=== PATIENT | female | born 1950 | race African-American/Black ===

== ENCOUNTER 2017-01-09 17:11 | Emergency (ER) | payer MEDICARE ==
[2017-01-09] MEDS ORDERED: Mag-Al Plus 1200 MG/1200 MG/120 MG/30 ML UDCUP ONE (17:59)
[2017-01-09] MEDS ORDERED: Lidocaine Viscous Sol 2% 15 ml UD Cup ONE (17:59)
[2017-01-09 18:04] LABS: Hemoglobin 14.4 g/dL (12.0-16.0); Mean Corpuscular HGB CONC 30.3 g/dL (32.0-36.0); Mean Corpuscular Volume 79.3 fl (81.0-99.0); Mean Platelet Volume 8.9 fL (7.4-10.4); Platelet Count 257 thou/uL (130-400); RBC Distribution Width 14.6 % (11.5-14.5); Red Blood Cell (RBC) Count 5.99 mill/uL (4.20-5.40); White Blood Cell (WBC) Count 6.1 thou/uL (4.8-10.8)
[2017-01-09 18:13] LABS: ALT (SGPT) 11 U/L (0-55); AST (SGOT) 16 U/L (5-34); Albumin 4.6 g/dL (3.4-4.8); Alkaline Phosphatase 85 U/L (40-150); Amylase 123 U/L (25-125); Anion Gap 17 mmol/L (10-20); BUN (Urea Nitrogen) 8 mg/dL (9.8-20.1); Bilirubin, Total 0.5 mg/dL (0.2-1.2); CK (CPK) 103 U/L (29-168); CKMB 1.8 ng/mL (0-6.6); Calc. Creatinine Clearance 0 mL/min (70-130); Calcium 10.1 mg/dL (7.8-10.44); Carbon Dioxide 21 mmol/L (23-31); Chloride 106 mmol/L (98-107); Estimated GFR-MDRD 63; Globulin 3.8 g/dL (2.4-3.5); Glucose 112 mg/dL (80-115); Lipase 46 U/L (8-78); Potassium 3.7 mmol/L (3.5-5.1); Protein, Total 8.4 g/dL (5.8-8.1); Sodium 140 mmol/L (136-145)
[2017-01-09 18:14] LABS: Blood, Urine Negative (Negative); Clarity Clear (Clear); Glucose, Urine (Dipstick) Negative (Negative); Leukocyte Negative (Negative); Nitrite Negative (Negative); Protein, Urine (Dipstick) 100 mg/dL (Neg-Trace); Urobilinogen 0.2 mg/dL (0.2-1.0)
[2017-01-09 18:23] LABS: Bilirubin Negative (Negative); Icto Negative (Negative); Specific Gravity, Urine 1.028 (1.002-1.036)
[2017-01-09 18:24] LABS: Bacteria/HPF 1+ HPF (None Seen); RBC/HPF None Seen HPF (0-3); WBC/HPF None Seen HPF (0-3)
[2017-01-09 18:26] LABS: #Basophils 0.1 thou/uL (0.0-0.2); #Eosinphils 0.1 thou/uL (0.0-0.7); #Lymphocytes 2.7 thou/uL (1.20-3.40); #Monocytes 0.4 thou/uL (0.11-0.59); %Basophils 1.4 % (0.0-1.0); %Eosinophils 1.2 % (0.0-10.0); %Lymphocytes 43.6 % (21.0-51.0); %Monocytes 6.3 % (0.0-10.0); %Neutrophils 47.5 % (42.0-75.0); MDiff Complete? YES; Microcytosis SLIGHT = 6-15 cells (100X) (0-5/hpf); PLT Morphology Comment Appears Adequate
--- NOTE | 2017-01-09 20:48 | RAD ---
AP VIEW CHEST: 01/09/2017 HISTORY: Epigastric pain and back pain. FINDINGS: AP view of the chest is obtained. The lungs are well-aerated. No evidence of active intrathoracic disease seen. No evidence of effusions, pneumonia, or pneumothorax seen. IMPRESSION: Unremarkable AP view chest. POS: [facility]
== END 2017-01-09 19:18 | disposition home or self-care (01) ==
LOC: NAV ERS 17:11
DX: R10.13 Epigastric pain (principal); R10.33 Periumbilical pain; E11.9 Type 2 diabetes mellitus without complications; K21.9 Gastro-esophageal reflux disease without esophagitis; I10 Essential (primary) hypertension; Z87.891 Personal history of nicotine dependence; Z79.4 Long term (current) use of insulin; Z79.82 Long term (current) use of aspirin; Z79.899 Other long term (current) drug therapy
CPT/HCPCS: 36416; 71010; 80053; 81003; 81015; 82150; 82550; 82553; 83690; 84484; 85025; 93005

== ENCOUNTER 2017-01-14 04:28 | Emergency (ER) | payer MEDICARE ==
[2017-01-14] MEDS ORDERED: Ondansetron HCl/PF 4 MG/2 ML Vial ONE (04:53)
[2017-01-14] MEDS ORDERED: Pantoprazole 40 MG VIAL ONE (04:53)
[2017-01-14] MEDS ORDERED: Sodium Chloride 0.9% 1,000 ML ONE (04:53)
[2017-01-14 05:23] LABS: #Basophils 0.1 thou/uL (0.0-0.2); #Eosinphils 0.1 thou/uL (0.0-0.7); #Lymphocytes 2.8 thou/uL (1.20-3.40); #Monocytes 0.4 thou/uL (0.11-0.59); #Neutrophils 2.6 thou/uL (1.40-6.50); %Basophils 1.1 % (0.0-1.0); %Lymphocytes 47.3 % (21.0-51.0); %Monocytes 6.5 % (0.0-10.0); %Neutrophils 44.1 % (42.0-75.0); Hypochromia SLIGHT = 6-15 cells (100X) (0-5/hpf); MDiff Complete? YES; Mean Corpuscular HGB CONC 31.3 g/dL (32.0-36.0); Mean Corpuscular Hemoglobin 24.4 pg (27.0-31.0); Mean Platelet Volume 8.7 fL (7.4-10.4); Microcytosis SLIGHT = 6-15 cells (100X) (0-5/hpf); PLT Morphology Comment Appears Adequate; Platelet Count 277 thou/uL (130-400); Poikilocytosis SLIGHT = 6-15 cells (100X) (0-5/hpf); RBC Distribution Width 14.3 % (11.5-14.5); Red Blood Cell (RBC) Count 6.12 mill/uL (4.20-5.40)
[2017-01-14 05:26] LABS: ALT (SGPT) 12 U/L (0-55); AST (SGOT) 15 U/L (5-34); Albumin 4.8 g/dL (3.4-4.8); Alkaline Phosphatase 90 U/L (40-150); Amylase 117 U/L (25-125); Anion Gap 17 mmol/L (10-20); BUN (Urea Nitrogen) 9 mg/dL (9.8-20.1); Bilirubin, Total 0.5 mg/dL (0.2-1.2); Calc. Creatinine Clearance 0 mL/min (70-130); Carbon Dioxide 18 mmol/L (23-31); Chloride 110 mmol/L (98-107); Estimated GFR-MDRD 55; Globulin 4.1 g/dL (2.4-3.5); Glucose 161 mg/dL (80-115); Lipase 38 U/L (8-78); Potassium 3.8 mmol/L (3.5-5.1); Protein, Total 8.9 g/dL (5.8-8.1); Sodium 141 mmol/L (136-145)
[2017-01-14 05:27] LABS: CKMB 1.4 ng/mL (0-6.6); Troponin I 0.019 ng/mL (< 0.028)
[2017-01-14 05:38] LABS: Blood, Urine Negative (Negative); Clarity Clear (Clear); Glucose, Urine (Dipstick) Negative (Negative); Leukocyte Negative (Negative); Nitrite Negative (Negative); Protein, Urine (Dipstick) 100 mg/dL (Neg-Trace); Specific Gravity, Urine 1.025 (1.005-1.030); Urobilinogen 0.2 mg/dL (0.2-1.0); pH, Urine 5.5 (5.0-9.0)
[2017-01-14 05:39] LABS: Bilirubin Negative (Negative); Icto Negative (Negative)
[2017-01-14 05:44] LABS: Bacteria/HPF Rare-Few HPF (None Seen); Hyaline Casts/LPF 0-3 HYALINE CAST LPF (0-3 Hyaline); RBC/HPF None Seen HPF (0-3); Squamous Epithelial 0-3 HPF (0-3); WBC/HPF 0-3 HPF (0-3)
[2017-01-14 05:45] LABS: Other Casts/LPF 0-3 FINELY GRAN LPF (0-3 Hyaline)
[2017-01-14] MEDS ORDERED: Dextrose 5 %-0.45 % NaCl 1,000 ML ONE (06:44)
--- NOTE | 2017-01-14 07:54 | RAD ---
SINGLE VIEW OF ABDOMEN: Date: 01/14/17 INDICATION: NG tube placement. IMPRESSION: Since the comparison examination, the NG tube remains coiled within the distal esophagus with the ti p projecting in the region of the upper to mid esophageal junction. Bowel gas pattern is stable. POS: [facility]
--- NOTE | 2017-01-14 08:05 | RAD ---
SINGLE VIEW OF THE ABDOMEN: INDICATION: Dobbhoff tube placement. FINDINGS: Dobbhoff tube tip is coiled within esophagus with the tip projecting in the region of the mid esopha tesfaye. The lungs are clear. Bowel gas pattern is nonspecific. IMPRESSION: Coiled nasogastric tube. POS: [facility]
--- NOTE | 2017-01-14 08:07 | CT ---
PRELIMINARY REPORT/[facility]/EMERGENCY AFTER HOURS PROCEDURE: EXAM: CT Abdomen and Pelvis With Intravenous Contrast. CLINICAL HISTORY: 66 years old, female; Pain and signs and symptoms; Bloating; Abdominal pain; Generalized; Prior surg jose miguel; Surgery date: 6+ months; Surgery type: Colon resection, appendectomy, tubal; Additional info: A bdominal pain that started about a couple of weeks ago. Described as constants pressure and feels bloated. TECHNIQUE: Axial computed tomography images of the abdomen and pelvis with intravenous contrast. Coronal and sagittal reformatted images were created and reviewed. CONTRAST: 96 mL of ISOVUE 370 administered intravenously. COMPARISON: No relevant prior studies available. FINDINGS: Lower thorax: No acute findings. ABDOMEN: Liver: Normal. Gallbladder and bile ducts: Unremarkable. Pancreas: Normal. Spleen: Normal. Adrenals: Normal. Kidneys and ureters: Normal. Stomach and bowel: Numerous dilated loops of small bowel in the abdomen measuring up to 5-6 cm with a transition point anteriorly in the right midabdomen (56; coronal 57-49). The small bowel is decomp ressed distally. The distal colon is decompressed. Bubbles of nondependent gas along dilated loops in the lower abdomen may be trapped within viscus fluid. Appendix: No findings to suggest acute appendicitis. PELVIS: Bladder: Normal. Reproductive: Unremarkable. ABDOMEN and PELVIS: Intraperitoneal space: No free air. No significant fluid collection. Bones/joints: Unremarkable. No acute fracture. Soft tissues: Unremarkable. Vasculature: Unremarkable. Lymph nodes: Unremarkable. No enlarged lymph nodes. IMPRESSION: Small bowel obstruction with right midabdomen transition point as above. Bubbles of nondependent gas along dilated loops in the lower abdomen are likely trapped in fluid, possibility of some pneumatos is not entirely excluded. Thank you for allowing us to participate in the care of your patient. Dictated and Authenticated by: Jonas Ernandez MD 01/14/2017 6:15 AM Central Time ([place] \T\ [place]) FINAL REPORT CT ABDOMEN AND PELVIS WITH IV CONTRAST I agree with the preliminary report given by Dr. Jonas Ernandez of [facility]. POS: [facility]
[2017-01-14] MEDS ORDERED: Iopamidol 370 76% 100 ML VIAL ONE (09:00)
== END 2017-01-14 08:15 | disposition short-term general hospital (02) ==
LOC: NAV ERS 04:28
DX: K56.60 Unspecified intestinal obstruction (principal); E11.9 Type 2 diabetes mellitus without complications; K21.9 Gastro-esophageal reflux disease without esophagitis; I10 Essential (primary) hypertension; Z87.891 Personal history of nicotine dependence; Z79.4 Long term (current) use of insulin; Z79.82 Long term (current) use of aspirin; Z79.899 Other long term (current) drug therapy
CPT/HCPCS: 74000; 74177; 80053; 81003; 81015; 82150; 82553; 83690; 84484; 85025; 93005; 96365; 96366; 96375; C9113; J2270; J2405; J7042; J7050

== ENCOUNTER 2017-03-25 08:05 | Outpatient (CLI) | payer MEDICARE | END 2017-03-25 08:06 | disposition home or self-care (01) | LOC: NAV LABSP 08:05 | PROVIDERS: ATTEND Internal Medicine Gastroenterology | DX: R10.9 Unspecified abdominal pain (principal); R19.7 Diarrhea, unspecified | CPT/HCPCS: 87015; 87045; 87046; 87324; 87328; 87329; 87449; 87899 ==

== ENCOUNTER 2019-07-27 07:31 | Emergency (ER) | payer MEDICARE ==
[2019-07-27 07:59] LABS: Bilirubin Negative (Negative); Blood, Urine Small (Negative); Clarity Clear (Clear); Glucose, Urine (Dipstick) 100 mg/dL (Negative); Leukocyte Negative (Negative); Nitrite Negative (Negative); Protein, Urine (Dipstick) > or equal to 300 mg/dL (Neg-Trace)
[2019-07-27] MEDS ORDERED: Ondansetron ODT 4 MG TAB ONE (08:11)
[2019-07-27 08:36] LABS: ALT (SGPT) 13 U/L (8-55); AST (SGOT) 13 U/L (5-34); Albumin 4.6 g/dL (3.4-4.8); Alkaline Phosphatase 90 U/L (40-110); Anion Gap 21 mmol/L (10-20); BUN (Urea Nitrogen) 9 mg/dL (9.8-20.1); Bilirubin, Total 0.4 mg/dL (0.2-1.2); Calc. Creatinine Clearance 0 mL/min (70-130); Calcium 11.2 mg/dL (7.8-10.44); Carbon Dioxide 22 mmol/L (23-31); Chloride 101 mmol/L (98-107); Estimated GFR-MDRD 66; Glucose 214 mg/dL (80-115); Lipase 52 U/L (8-78); Potassium 4.1 mmol/L (3.5-5.1); Protein, Total 7.6 g/dL (6.0-8.3); Sodium 140 mmol/L (136-145)
[2019-07-27 08:37] LABS: Bacteria/HPF None Seen HPF (None Seen); Mucous/LPF Rare LPF (<2+); Squamous Epithelial 0-3 HPF (0-3)
[2019-07-27 08:41] LABS: #Basophils 0.1 thou/uL (0.0-0.2); #Lymphocytes 1.5 thou/uL (1.20-3.40); #Monocytes 0.3 thou/uL (0.11-0.59); #Neutrophils 6.5 thou/uL (1.40-6.50); %Basophils 0.6 % (0.0-1.0); %Eosinophils 0.3 % (0.0-10.0); %Lymphocytes 16.8 % (21.0-51.0); %Monocytes 3.4 % (0.0-10.0); %Neutrophils 78.9 % (42.0-75.0); Hemoglobin 12.1 g/dL (12.0-16.0); MDiff Complete? YES; Mean Corpuscular HGB CONC 29.2 g/dL (32.0-36.0); Mean Corpuscular Hemoglobin 21.3 pg (27.0-31.0); Mean Corpuscular Volume 72.8 fL (78.0-98.0); Mean Platelet Volume 7.6 fL (7.4-10.4); Platelet Count 280 thou/uL (130-400); RBC Distribution Width 16.7 % (11.5-14.5); Red Blood Cell (RBC) Count 5.73 mill/uL (4.20-5.40); White Blood Cell (WBC) Count 8.3 thou/uL (4.8-10.8)
[2019-07-27] MEDS ORDERED: Lidocaine 2% Jelly 5 ML TUBE ONE (08:41)
[2019-07-27 08:42] LABS: Hypochromia SLIGHT = 6-15 cells (100X) (0-5/hpf); Microcytosis SLIGHT = 6-15 cells (100X) (0-5/hpf); Platelet Morphology Comment Appears Adequate
[2019-07-27] MEDS ORDERED: Benzocaine 20% Spray 60 ML CAN ONE (08:42)
--- NOTE | 2019-07-27 08:50 | RAD ---
CHEST 1 VIEW AND ABDOMEN 2 VIEWS: HISTORY: Abdominal distention, vomiting. FINDINGS: The heart size is normal. The aorta is tortuous. The lungs are well expanded and clear. Differential air fluid levels. The small and large bowel lobes appear prominent. No free air is see n. IMPRESSION: Findings suspicious for bowel obstruction. POS: [facility]
[2019-07-27] MEDS ORDERED: Iopamidol 370 76% 100 ML VIAL ONE (09:00)
[2019-07-27] MEDS ORDERED: Lactated Ringer's 1,000 ML ONE (09:19)
[2019-07-27] MEDS ORDERED: Metoprolol Tartrate 5 MG/5 ML VIAL ONE (09:32)
--- NOTE | 2019-07-27 10:19 | CT ---
CT ABDOMEN AND PELVIS WITH IV CONTRAST: Date: 07/27/19 INDICATION: Abdominal pain. Bowel obstruction. Comparison made to CT abdomen/pelvis dated 05/07/18. FINDINGS: The lung bases are clear. Sliding diaphragmatic hernia. There is dilatation of the lower esophagus just above the EG junction. A NG tube has been placed with tip in the mid gastric fundus. Liver, spleen, and pancreas are unremarkable. Adrenal glands and kidneys unremarkable. A left renal cyst measuring approximately 1.0 cm is stable. Urinary bladder is contracted. There is severe fluid-filled dilatation of proximal and mid small bowel loops. The distal small bowel loops are decompressed. The findings are consistent with a high grade small bowel obstruction involv ing the mid to distal small bowel. Aorta is normal caliber. No free fluid. Images through the pelvis show an unremarkable uterus and adnexa. There is whirling of the mesentery in the right abdomen. This whirling can be seen with small bowel o bstruction, sometimes indicating omental torsion or closed loop obstruction. It can also be associate d with internal hernias. IMPRESSION: Evidence of a high grade small bowel obstruction involving the mid to distal small bowel. POS: [facility]
== END 2019-07-27 10:56 | disposition short-term general hospital (02) ==
LOC: NAV ERS 07:31
DX: K56.699 Other intestinal obstruction unspecified as to partial versus complete obstruction (principal); E11.9 Type 2 diabetes mellitus without complications; K21.9 Gastro-esophageal reflux disease without esophagitis; I10 Essential (primary) hypertension; M19.90 Unspecified osteoarthritis, unspecified site; Z87.891 Personal history of nicotine dependence; Z79.4 Long term (current) use of insulin; Z85.038 Personal history of other malignant neoplasm of large intestine; Z79.82 Long term (current) use of aspirin
CPT/HCPCS: 74022; 74177; 80053; 81003; 81015; 83690; 84484; 85025; 96360; J7120; Q0162; Q9967

== ENCOUNTER 2020-05-01 14:31 | Emergency (ER) | payer MEDICARE, OTHER ==
[~2020-05-01 14:31] MED LIST: Iopamidol 370 76% 100 ML VIAL ONE
[2020-05-01] MEDS ORDERED: Sodium Chloride 0.9% 1,000 ML ONE (15:08)
[2020-05-01 15:21] LABS: Bilirubin Negative (Negative); Blood, Urine Trace (Negative); Clarity Clear (Clear); Glucose, Urine (Dipstick) 100 mg/dL (Negative); Ketone, Urine Negative (Negative); Leukocyte Negative (Negative); Nitrite Negative (Negative); Protein, Urine (Dipstick) 100 mg/dL (Neg-Trace); Specific Gravity, Urine 1.025 (1.005-1.030)
[2020-05-01 15:35] LABS: Hemoglobin 11.6 g/dL (12.0-16.0); Mean Corpuscular Hemoglobin 23.8 pg (27.0-31.0); Mean Corpuscular Volume 80.1 fL (78.0-98.0); Red Blood Cell (RBC) Count 4.88 mill/uL (4.20-5.40); White Blood Cell (WBC) Count 4.4 thou/uL (4.8-10.8)
[2020-05-01 15:36] LABS: #Lymphocytes 1.4 thou/uL (1.20-3.40); #Neutrophils 2.9 thou/uL (1.40-6.50); %Basophils 0.4 % (0.0-1.0); %Monocytes 3.6 % (0.0-10.0); ALT (SGPT) 12 U/L (8-55); AST (SGOT) 19 U/L (5-34); Albumin 3.6 g/dL (3.4-4.8); Alkaline Phosphatase 64 U/L (40-110); Anion Gap 16 mmol/L (10-20); BUN (Urea Nitrogen) 7 mg/dL (9.8-20.1); Bilirubin, Total 0.6 mg/dL (0.2-1.2); Calc. Creatinine Clearance 0 mL/min (70-130); Carbon Dioxide 20 mmol/L (23-31); Chloride 101 mmol/L (98-107); Estimated GFR-MDRD Greater than 90; Globulin 2.8 g/dL (2.4-3.5); Glucose 195 mg/dL (83-110); Lipase 52 U/L (8-78); Mean Corpuscular HGB CONC 29.7 g/dL (32.0-36.0); Mean Platelet Volume 10.3 fL (7.4-10.4); Platelet Count 176 thou/uL (130-400); Potassium 3.2 mmol/L (3.5-5.1); Protein, Total 6.4 g/dL (6.0-8.3); RBC Distribution Width 14.7 % (11.5-14.5); Sodium 134 mmol/L (136-145)
[2020-05-01 15:37] LABS: #Monocytes 0.2 thou/uL (0.11-0.59)
[2020-05-01 15:45] LABS: Bacteria/HPF None Seen HPF (None Seen); RBC/HPF 0-3 HPF (0-3); WBC/HPF None Seen HPF (0-3)
--- NOTE | 2020-05-01 17:07 | RAD ---
CHEST ONE VIEW ABDOMEN TWO VIEWS: History: Chest pain and abdominal pain, colon cancer. Comparison: 07-29-19 FINDINGS: Minimal increasing linear and parenchymal changes bilaterally in the mid and lower lung zones from pr ior study, possibly some mild interstitial edema or less likely, diffuse interstitial pneumonitis. No confluent lobar pneumonia or pleural effusion. No evidence for free intraperitoneal air. Multiple ellis rgical clips. No large or small bowel obstruction. IMPRESSION: Minimal increased linear and interstitial markings in the lower lung zones, more prominent than prior study. No significant acute process in the abdomen. POS: [facility]
[2020-05-01] MEDS ORDERED: Sodium Chloride 0.9% 500 ML ONE (17:27)
[2020-05-01] MEDS ORDERED: Acetaminophen 500 MG TAB ONE (17:27)
--- NOTE | 2020-05-01 17:30 | CT ---
CT ANGIOGRAM CHEST AND ABDOMEN - DISSECTION PROTOCOL: Date: 05-01-2020 Comparison: None History: Chest pain radiating to the back Technique: Axial CT imaging obtained at 2.5 mm intervals from the lung apices through the inguinal re gions with IV contrast using CT angiogram protocol. Coronal and sagittal 3D reformatted imaging obtai liudmila. FINDINGS: Lung apices are not fully imaged. There is multifocal peripheral ground glass pulmonary parenchymal opacity involving the left upper lo be in numerous regions, most prominent in the infralateral aspect of the left upper lobe. There is mi ld scattered ground glass opacity within both lower lobes as well, right greater than left, most prom inent within the superior segment of the right lower lobe. Foci of ground glass opacities are seen po steriorly within the right middle lobe and there are numerous foci of peripheral ground glass opacity within the right upper lobe. There is a moderate sliding type hiatal hernia. There is debris within the mid and distal esophagus, which is mildly prominent and not optimally assessed on this exam. There is atherosclerotic calcification of the aortic arch and great vessels, particularly the left ellis bclavian artery origin. There is extensive atherosclerotic calcification of the descending thoracic a liam with no evidence for aneurysm or dissection. The imaged osseous structures of the chest demonstrate no acute findings. No mediastinal, hilar or axillary lymphadenopathy is seen. There are a few scattered post-operative clips in the gallbladder fossa and adjacent to the left lobe of the liver. The hepatic parenchyma is hypodense, suggesting steatosis. The spleen, pancreas, adrenal glands, and kidneys appear grossly unremarkable. Limited assessment of the bowel demonstrate no acute findings. There is scattered atherosclerotic calcification of the abdominal aorta and the arterial structures o f the pelvis. No aneurysm or dissection of the abdominal aorta is noted. The superior mesenteric artery, cephalic axis, bilateral renal arteries, and intramesenteric artery a ppear patent. There is a mild/moderate degree of stenosis at the origin of the right renal artery. There is lower lumbar spine facet hypertrophic change bilaterally. IMPRESSION: 1. No evidence for aneurysm or dissection of the abdominal or thoracic aorta. 2. Extensive multifocal ground glass opacity within both lungs with an upper lobe predominance, left greater than right. Findings suggest multilobar atypical infectious pneumonitis. Covid 19 is a possib ility. 3. Hiatal hernia with debris within a mildly prominent mid and distal esophagus for which follow up b arium swallow endoscopy is advised. Code T
== END 2020-05-01 18:33 | disposition short-term general hospital (02) ==
LOC: NAV ERS 14:31
DX: R53.1 Weakness (principal); R91.8 Other nonspecific abnormal finding of lung field; Z20.828 Contact with and (suspected) exposure to other viral communicable diseases; K21.9 Gastro-esophageal reflux disease without esophagitis; I10 Essential (primary) hypertension; M19.90 Unspecified osteoarthritis, unspecified site; G51.0 Bell's palsy; Z87.891 Personal history of nicotine dependence; Z79.4 Long term (current) use of insulin; Z79.82 Long term (current) use of aspirin; Z79.899 Other long term (current) drug therapy
CPT/HCPCS: 71275; 72191; 74022; 74175; 80053; 81003; 81015; 83605; 83690; 83880; 84484; 85025; 85379; 93005; 96360; 96361; J7030; J7050; Q9967

== ENCOUNTER 2020-05-05 15:03 | Emergency (ER) | payer MEDICARE, OTHER ==
[2020-05-05] MEDS ORDERED: Sodium Chloride 0.9% 1,000 ML ONE ×2 (15:24→16:30)
--- NOTE | 2020-05-05 15:43 | RAD ---
XR Chest 1 View Portable HISTORY: Dyspnea. Covid 19 positive COMPARISON: 05/01/2020 FINDINGS: The heart size stable. The aorta is tortuous. New mild patchy infiltrates are seen bilatera lly. No pneumothoraces or pleural effusions are seen. There are degenerative changes in the spine. IMPRESSION: Findings are suspicious for Covid19 pneumonia.
[2020-05-05 15:51] LABS: ALT (SGPT) 22 U/L (8-55); AST (SGOT) 45 U/L (5-34); Albumin 3.5 g/dL (3.4-4.8); Alkaline Phosphatase 63 U/L (40-110); Anion Gap 21 mmol/L (10-20); BUN (Urea Nitrogen) 10 mg/dL (9.8-20.1); Bilirubin, Total 0.8 mg/dL (0.2-1.2); Calc. Creatinine Clearance 0 mL/min (70-130); Calcium 8.5 mg/dL (7.8-10.44); Carbon Dioxide 19 mmol/L (23-31); Chloride 101 mmol/L (98-107); Estimated GFR-MDRD 67; Globulin 3.2 g/dL (2.4-3.5); Glucose 388 mg/dL (83-110); Potassium 3.3 mmol/L (3.5-5.1); Protein, Total 6.7 g/dL (6.0-8.3); Sodium 138 mmol/L (136-145)
[2020-05-05 15:56] LABS: #Lymphocytes 1.2 thou/uL (1.20-3.40); #Monocytes 0.2 thou/uL (0.11-0.59); #Neutrophils 5.3 thou/uL (1.40-6.50); %Basophils 0.5 % (0.0-1.0); %Lymphocytes 18.2 % (21.0-51.0); %Monocytes 3.4 % (0.0-10.0); Hemoglobin 11.4 g/dL (12.0-16.0); Mean Corpuscular HGB CONC 29.3 g/dL (32.0-36.0); Mean Corpuscular Hemoglobin 23.4 pg (27.0-31.0); Mean Corpuscular Volume 79.7 fL (78.0-98.0); Mean Platelet Volume 9.1 fL (7.4-10.4); Platelet Count 282 thou/uL (130-400); RBC Distribution Width 14.8 % (11.5-14.5); Red Blood Cell (RBC) Count 4.89 mill/uL (4.20-5.40); White Blood Cell (WBC) Count 6.8 thou/uL (4.8-10.8)
[2020-05-05 16:08] LABS: Base Excess-Venous -0.9 mmol/L (-2.0 to 3.0); Bicarbonate (HCO3v) 24.2 mmol/L (22.0-28.0); CO2 Tension (PvCO2) 40.9 mmHg (40.0-50.0); Calcium, Ionized 1.09 mmol/L (See Comments:); Chloride 102 mmol/L (98-107); Hemoglobin - Calc 13.7 g/dL (12.0-16.0); Potassium 3.1 mmol/L (3.5-5.1); Sodium 141 mmol/L (138-145); T. Carbon Dioxide 25.5 mmol/L (22.0-28.0); vO2 Saturation-calc 58.6 % (60.0-85.0)
== END 2020-05-05 17:53 | disposition short-term general hospital (02) ==
LOC: NAV ERS 15:03
DX: A41.89 Other specified sepsis (principal); U07.1 COVID-19; E11.9 Type 2 diabetes mellitus without complications; K21.9 Gastro-esophageal reflux disease without esophagitis; I10 Essential (primary) hypertension; G51.0 Bell's palsy; Z87.891 Personal history of nicotine dependence; Z79.899 Other long term (current) drug therapy; Z79.84 Long term (current) use of oral hypoglycemic drugs; Z79.82 Long term (current) use of aspirin
CPT/HCPCS: 36416; 71045; 80053; 82010; 82330; 82803; 83605; 84484; 85025; 85379; 93005; 96360; 96361; J7050